=== PATIENT | female | born 1990 | race Caucasian/White ===

== ENCOUNTER 2016-06-01 15:43 | Emergency (ER) | payer SELFPAY ==
[2016-06-01 15:43] VITALS: BMI 21.2
== END 2016-06-01 18:51 | disposition left against medical advice (07) ==
LOC: ED 15:43 → EDMC 18:51
DX: M79.606 Pain in leg, unspecified (principal); Z53.21 Procedure and treatment not carried out due to patient leaving prior to being seen by health care provider